=== PATIENT | female | born 1935 | race Caucasian/White ===

== ENCOUNTER → 2016-07-03 | Outpatient (CLI) | payer MEDICARE ==
--- NOTE | 2016-07-03 08:46 | US ---
EXAMINATION TYPE: US pelvic complete DATE OF EXAM: 07/03/2016 7:54 AM COMPARISON: NONE CLINICAL HISTORY: Rectocele N81.6. Patient states she has something hanging out of her vagina,and the doctor told her it is bowel. Vaginal mass. TECHNIQUE: Transabdominal (TA) Date of LMP: post menopausal EXAM MEASUREMENTS: Uterus: 5.9 x 2.8 x 3.7 cm Endometrial Stripe: 0.2 cm Right Ovary: not seen cm Left Ovary: not seen cm 1. Uterus: Anteverted wnl 2. Endometrium: wnl 3. Right Ovary: not seen 4. Left Ovary: not seen 5. Bilateral Adnexa: wnl 6. Posterior cul-de-sac: no free fluid Uterus is anteverted in shape and within normal limits in size. No free fluid is seen in pelvis. Neither ovary is seen. No concerning adnexal masses are noted. IMPRESSION: Unremarkable study. Possible rectal prolapse can be better assessed with pelvic MRI or po ssibly even defecography exam if desired.
== END | disposition home or self-care (01) ==
LOC: RADUSWWP 07:40
DX: N81.6 Rectocele (principal)
CPT/HCPCS: 76856

== ENCOUNTER 2016-08-26 14:17 | Emergency (ER) | payer MEDICARE ==
[2016-08-26] MEDS ORDERED: predniSONE 20 MG TAB PO STA (15:55)
--- NOTE | 2016-08-26 15:58 | ED ---
General Adult HPI - General Chief complaint: Skin/Abscess/Foreign Body Stated complaint: swollen foot/leg & blister on toe Time Seen by Provider: 08/26/16 14:55 Source: patient, family, RN notes reviewed Mode of arrival: wheelchair Limitations: no limitations - History of Present Illness Initial comments: Chief complaint and history of present illness is a 81-year-old female presents with swelling and pain to her left second toe. Patient has tophaceous gout. This will be drained and sent to laboratory. The patient states she's had gout in that same toe in the past but never got a blister she has now. - Related Data Home Medications Medication Instructions Recorded Confirmed Chlorthalidone [Hygroton] 12.5 mg PO DAILY 06/30/14 08/26/16 Lisinopril [Prinivil] 20 mg PO BID 06/30/14 08/26/16 Indomethacin [Indocin] 25 mg PO DIRECTED 08/26/16 08/26/16 Naproxen Sodium [Aleve] 220 mg PO DAILY PRN 08/26/16 08/26/16 Previous Rx's Medication Instructions Recorded Cephalexin [Keflex] 500 mg PO Q6HR #20 cap 08/26/16 predniSONE 20 mg PO DAILY #3 tab 08/26/16 Allergies Allergy/AdvReac Type Severity Reaction Status Date / Time No Known Allergies Allergy Verified 08/26/16 15:13 Review of Systems ROS Statement: Those systems with pertinent positive or pertinent negative responses have been documented in the HPI. Review of systems no headache or visual acuity changes no chest pain or shortness of breath no GI/ problems. She was placed on Indocin and that seemed to upset her stomach and make her feel strange so she stopped it. She can take the Aleve. She'll be placed on prednisone for short course. She does not take colchicine or allopurinol. She is taking Prinivil and chlorthalidone. Advised to stop chlorthalidone for a while until she rehydrate. And discuss these medications with her family physician including Prinivil. All systems reviewed. Past medical problems significant for high blood pressure. History of brain aneurysm with surgery. Other surgeries appendectomy cholecystectomy. Family history mother had lymph node cancer. Patient denies any ALLERGIES quit smoking 20 years ago. Drinks 1 glass of wine nightly. ROS Other: All systems not noted in ROS Statement are negative. Past Medical History Additional Past Medical History / Comment(s): HX OF BRAIN ANEURYSM-HAS SHUNTS FROM HEAD TO STOMACH (1996), RECENTLY HAD ALL UPPER TEETH PULLED. History of Any Multi-Drug Resistant Organisms: None Reported Past Surgical History: Appendectomy, Cholecystectomy Additional Past Surgical History / Comment(s): BRAIN ANEURYSM SURG WITH TUBES INSERTED FROM HEAD TO STOMACH. Past Anesthesia/Blood Transfusion Reactions: No Reported Reaction Past Psychological History: No Psychological Hx Reported Smoking Status: Former smoker Past Alcohol Use History: Daily Past Drug Use History: None Reported - Past Family History Mother Family Medical History: Cancer Additional Family Medical History / Comment(s): COLON CA Sister(s) Family Medical History: Cancer Additional Family Medical History / Comment(s): COLON CA General Exam - General Exam Comments Initial Comments: General: The patient is awake and alert, complaining of moderate to severe pain to her left second toe ongoing for several days. Now she has a blister with yellow fluid. Appears to be tophaceous gout. Vital signs temp 98.0 pulse 71 respiratory rate 20 pulse ox 99% room air blood pressure 158/69 Eye: Pupils are equal, round and reactive to light, extra-ocular movements are intact ; there is normal conjunctiva bilaterally. No signs of icterus. Ears, nose, mouth and throat: There are moist mucous membranes and no oral lesions. Neck: The neck is supple, there is no tenderness, no anterior cervical lymphadenopathy.. Cardiovascular: There is a regular rate and rhythm. No murmur, rub or gallop is appreciated. Respiratory: Lungs are clear to auscultation, respirations are non-labored, breath sounds are equal. No wheezes, stridor, rales, or rhonchi. Gastrointestinal: Soft, non-distended, non-tender abdomen without masses or organomegaly noted. There is no rebound or guarding present. No CVA tenderness. Bowel sounds are unremarkable. Back: No complaint of back pain Musculoskeletal: Red swollen left second toe. With blister at the DIP joint. This was aspirated using sterile technique several drops of fluid sent for culture as well as examination for uric acid crystals Neurological: No neuro deficits. Skin: Tender red swollen left second toe Limitations: no limitations Course Vital Signs 08/26/16 14:44 Temperature 98.0 F Pulse Rate 71 Respiratory 20 Rate Blood Pressure 158/69 O2 Sat by Pulse 99 Oximetry Procedures - Procedures Initial comment: Procedure; using sterile technique fluid was drained from the blister on the volar surface of the left second toe. As a be sent for evaluation for uric acid crystals and a second culture was taken as well of the fluid for culture and sensitivity Medical Decision Making - Medical Decision Making Medical decision-making. The patient reports the Indocin irritated her too much and we placed on prednisone for short course she states she is able take the Aleve without problems she been good told to continue the Prinivil was stopped the high [place] until she speaks to her family physician. Keep the foot elevated. Wash it well twice daily apply Bactroban ointment as prescribed. X-ray of the left foot with attention to the toes reviewed by radiologist his final impression is correlate for history of trauma. Findings suggest underlying gout. As read by Dr. De Santiago. The patient will be referred onto her family doctor. Replaced on cephalexin 500 4 times a day for the next 10 days for possible infection of left great toe. Advised to continue with her Aleve for discomfort as well as prednisone for relief of pain. Call follow-up with family physician. Disposition Clinical Impression: Tophaceous gout of joint, Cellulitis of second toe, left Disposition: HOME SELF-CARE Condition: Stable Instructions: Low Purine Diet (ED), Gout (ED), Cellulitis (ED) Additional Instructions: Wash daily, apply bacitracin. Keep elevated. Take Aleve for discomfort. Prednisone for discomfort. Cephalexin for infection. Follow-up with your physician for further evaluation for possible osteomyelitis. Prescriptions: Cephalexin [Keflex] 500 mg PO Q6HR #20 cap predniSONE 20 mg PO DAILY #3 tab Referrals: Abdiel Frank DO [Primary Care Provider] - 1-2 days Time of Disposition: 17:01
--- NOTE | 2016-08-26 16:11 | XR ---
Second digit left foot HISTORY: Large blister, pain second toe 3 views of the second toe of the left foot No comparisons Question lucent lesion involving the distal phalanx of the first digit proximally. Arthropathy noted at the metatarsophalangeal joint of the first digit. There is associated soft tissue swelling which m ay be indicative of gout. Soft tissue swelling noted at the second digit. There are ossific densities at the level of the lateral aspect of the middle phalanx of the second digit distally as well as pro ximal aspect medially of the distal phalanx of the second digit which may represent fractures of inde terminate age with minimal displacement or possibly erosions. No dislocation. IMPRESSION: Correlate for history of trauma. Findings suggest underlying gout.
[2016-08-26 17:16] VITALS: BP 137/62; PULSE 68; RESP 15; TEMP 97.8
[2016-08-27 10:43] LABS: Synovial Crystal Source Left Toe
== END 2016-08-26 17:14 | disposition home or self-care (01) ==
LOC: EC 14:17
DX: M1A.9XX1 Chronic gout, unspecified, with tophus (tophi) (principal); L03.032 Cellulitis of left toe; Z87.891 Personal history of nicotine dependence; Z79.1 Long term (current) use of non-steroidal anti-inflammatories (NSAID); Z79.899 Other long term (current) drug therapy
CPT/HCPCS: 87070; 87205; 89060; 99283